=== PATIENT | female | born 1985 | race Asian ===

== ENCOUNTER 2018-09-28 04:40 | Inpatient (IN) | payer MEDICAID, OTHER, SELFPAY ==
[2018-09-28] MEDS ORDERED: Ondansetron PF 4 MG/2 ML Vial IVP PRN ×3 (05:19→10:31)
[2018-09-28] MEDS ORDERED: Promethazine HCl 25 MG/ML VIAL IM PRN ×2 (05:19→07:36)
[2018-09-28] MEDS ORDERED: Bicitra 30 ML UDCUP PO SCH (05:19)
[2018-09-28] MEDS ORDERED: CEFAZOLIN/Water 2 GM/20 ML SYRINGE SLOW IVP SCH (05:19)
[2018-09-28] MEDS ORDERED: Lactated Ringer's 1,000 ML IV SCH (05:19)
[2018-09-28 05:30] VITALS: BMI 31.6
[2018-09-28 06:01] LABS: Hemoglobin 11.9 g/dL (12.0-16.0); Mean Corpuscular HGB CONC 32.8 g/dL (32.0-36.0); Mean Corpuscular Volume 79.2 fL (78.0-98.0); Mean Platelet Volume 8.8 fL (7.4-10.4); Platelet Count 203 thou/uL (130-400); Red Blood Cell (RBC) Count 4.58 mill/uL (4.20-5.40); White Blood Cell (WBC) Count 11.7 thou/uL (4.8-10.8)
[2018-09-28 06:35] LABS: HBSAg Index 0.31 S/CO (0-0.99); Hep B Surf Ag Non-Reactive S/CO (NonReactive); Syphilis Antibody Nonreactive (Nonreactive); Syphilis Antibody Index 0.05 S/CO (<1.00 Non-Reactive)
[2018-09-28] MEDS ORDERED: Lidocaine 2% PF Inj 2 ML VIAL ONE (06:58)
[2018-09-28] MEDS ORDERED: Morphine PF 1 MG/ML SYR ONE (06:58)
[2018-09-28] MEDS ORDERED: Bupivacaine 0.75% W/DEXTROSE 8.25% 2 ML AMP ONE (06:59)
[2018-09-28] MEDS ORDERED: Oxytocin 10 UNITS/ML VIAL ONE (07:07)
[2018-09-28] MEDS ORDERED: Ondansetron HCl/PF 4 MG/2 ML Vial IVP PRN (07:35)
[2018-09-28] MEDS ORDERED: L&D-Morphine 4 MG/ML VIAL SLOW IVP PRN (07:35)
[2018-09-28] MEDS ORDERED: Meperidine HCl/PF 25 MG/ML VIAL SLOW IVP PRN (07:35)
[2018-09-28] MEDS ORDERED: HYDROmorphone 2 MG/ML VIAL SLOW IVP PRN (07:35)
[2018-09-28] MEDS ORDERED: Promethazine HCl 25 MG SUPP PR PRN (07:36)
[2018-09-28] MEDS ORDERED: Naloxone HCl 0.4 mg/ml Vial IV PRN (07:36)
[2018-09-28] MEDS ORDERED: Ketorolac Tromethamine 30 MG/ML VIAL IVP PRN (07:36)
[2018-09-28] MEDS ORDERED: Naloxone HCl 0.4 mg/ml Vial IVP PRN ×2 (07:36)
[2018-09-28] MEDS ORDERED: diphenhydrAMINE 50 MG/ML VIAL IVP PRN (07:36)
[2018-09-28] MEDS ORDERED: Eucerin (Mineral Oil/Petrolatum,White) 30 gm Jar TOP PRN (07:36)
[2018-09-28] MEDS ORDERED: Ketorolac Tromethamine 30 MG/ML VIAL IVP SCH (07:45)
[2018-09-28] MEDS ORDERED: Communication Order-Pharmacy FS SCH (07:45)
[2018-09-28] MEDS ORDERED: PHENYLEPHRINE-NS 100 MCG/ML 10 ML SYRINGE ONE ×2 (08:07→14:46)
--- NOTE | 2018-09-28 08:27 | OP ---
DATE OF PROCEDURE: 09/28/2018 PREOPERATIVE DIAGNOSIS: Term intrauterine with previous section. POSTOPERATIVE DIAGNOSES: Term intrauterine with previous section, status post del steph. PROCEDURE: Repeat low transverse section. SURGEON: Verenice Corea M.D. LAY OUT AND DETAIL DRAFTER: Pacnhito Corea M.D. ANESTHESIA: Spinal anesthetic. COMPLICATIONS: None. PROCEDURE IN DETAIL: After adequate spinal anesthetic, the patient was placed in supine position. A wedge was placed under her right flank. A Cade catheter was placed and the abdomen was prepped and draped in the usual sterile technique. A Pfannenstiel incision was made through the old scar and th e old scar was removed. The subcu tissue was opened with sharp dissection. Fascia opened with sharp dissection. Peritoneum opened with sharp and blunt dissection. It was noted that the abdomen was f illed with a gravid uterus. A large Allan O retractor was placed and a bladder flap was incised inf eriorly. A low transverse incision was made on the uterus. Membranes were ruptured. Clear fluid wa s encountered. A viable female infant was delivered from vertex presentation without difficulty. In jason breathed and cried spontaneously. Cord was clamped and cut after approximately 30 seconds. An additional cord blood allowed to the baby. The infant was handed to care of the neonatology team. C ord blood was then obtained and the placenta was delivered manually and appeared intact. The uterus was wiped clean with a second wet lap, and the hysterotomy edges were grasped with ring forceps. An additional ring forceps was used to dilate the cervix and this ring forcep was taken external to the sterile field. The uterus was then closed in continuous fashion using #1 Monocryl. Hemostasis was a dequate. The Allan O retractor was then removed. There were no bleeders. Two small clots were rem evan, and the peritoneum was then closed in continuous fashion using a 3-0 chromic. The fascia was t hen closed in continuous fashion using 0 Vicryl. Subcutaneous tissue was reapproximated with 2-0 wilber in and the sutures were placed in the skin. The patient tolerated the procedure well. Sponge and in strument counts were correct. The patient to recovery room in good condition. Quantitative blood loss 365 mL. Noted the baby is a viable female infant, weight 7 pounds 7 ounces, Apgars 9 at 1 minute, 9 at 5 minutes, to go to the recovery room in good condition. Noted uterus, o varies, and tubes all appear within normal limits.
[2018-09-28] MEDS ORDERED: NS / Oxytocin 40 units/1000ml 1,000 ML ONE (08:41)
[2018-09-28] MEDS ORDERED: diphenhydrAMINE 50 MG/ML VIAL ONE (09:15)
[2018-09-28] MEDS ORDERED: CEFAZOLIN 2 GM/50 ML-DEXTROSE 2 GM in Premix Bag 1 BAG IVPB SCH (09:45)
[2018-09-28] MEDS ORDERED: NS / Oxytocin 40 units/1000ml 1,000 ML IV SCH (10:31)
[2018-09-28] MEDS ORDERED: Bisacodyl 10 MG SUPP PR PRN (10:31)
[2018-09-28] MEDS ORDERED: Simethicone Chewable 80 MG TAB PO PRN (10:31)
[2018-09-28] MEDS ORDERED: Acetaminophen/Codeine 30-300mg Tablet PO PRN (10:31)
[2018-09-28] MEDS ORDERED: diphenhydrAMINE 25 MG CAP PO PRN (10:31)
[2018-09-28] MEDS ORDERED: Acetaminophen 325 MG TAB PO PRN (10:31)
[2018-09-28] MEDS ORDERED: Lanolin Ointment 7 GM TUBE TOP PRN (10:31)
[2018-09-28] MEDS ORDERED: Ferrous Sulfate 325 MG TAB PO SCH (11:45)
[2018-09-28] MEDS ORDERED: Prenatal Vitamin 1 TAB PO SCH (12:00)
[2018-09-28] MEDS: Docusate Calcium (SURFAK) 240 MG CAP PO SCH ×2 (12:50→21:00)
[2018-09-28 14:13] LABS: HBSAg Index 0.21 S/CO (0-0.99); HIV (1/2) Antibody/Antigen Non-Reactive (NonReactive); Hep B Surf Ag Non-Reactive S/CO (NonReactive); Hep C IgG Ab Non-Reactive (NonReactive); Hep C Index 0.11 S/CO (0-0.79)
[2018-09-28] MEDS: Ibuprofen 800 MG TAB PO SCH ×2 (14:59→22:00)
[2018-09-28] MEDS: Ferrous Sulfate 325 MG TAB PO SCH (21:00)
[2018-09-29] MEDS: Ibuprofen 800 MG TAB PO SCH ×4 (04:03→21:34)
[2018-09-29 06:15] LABS: Hemoglobin 10.1 g/dL (12.0-16.0); Mean Corpuscular Hemoglobin 25.9 pg (27.0-31.0); Mean Corpuscular Volume 81.2 fL (78.0-98.0); Mean Platelet Volume 8.5 fL (7.4-10.4); Platelet Count 173 thou/uL (130-400); RBC Distribution Width 14.3 % (11.5-14.5); White Blood Cell (WBC) Count 12.6 thou/uL (4.8-10.8)
[2018-09-29 06:35] LABS: Hep C IgG Ab Non-Reactive (NonReactive); Hep C Index 0.12 S/CO (0-0.79)
[2018-09-29] MEDS ORDERED: Prenatal Vitamin 1 TAB PO SCH (09:00)
[2018-09-29] MEDS: Ferrous Sulfate 325 MG TAB PO SCH ×2 (09:54→21:01)
[2018-09-29] MEDS: Docusate Calcium (SURFAK) 240 MG CAP PO SCH ×3 (09:54→21:02)
[2018-09-29] MEDS: Prenatal Vitamin 1 TAB PO SCH (09:56)
[2018-09-29] MEDS: HYDROcodone/Acetaminophen 5/325 mg Tablet PO PRN ×2 (12:31→16:44)
[2018-09-29] MEDS ORDERED: Artificial Tear Sol 15 ML BOT EA EYE PRN (13:48)
[2018-09-30] MEDS: HYDROcodone/Acetaminophen 5/325 mg Tablet PO PRN (03:40)
[2018-09-30] MEDS: Ibuprofen 800 MG TAB PO SCH ×3 (05:32→21:02)
[2018-09-30] MEDS: Ferrous Sulfate 325 MG TAB PO SCH (09:34)
[2018-09-30] MEDS: Docusate Calcium (SURFAK) 240 MG CAP PO SCH (09:34)
[2018-09-30] MEDS: Prenatal Vitamin 1 TAB PO SCH (09:39)
[2018-09-30 20:19] VITALS: BP 118/66; TEMP 97.9
[2018-10-01] MEDS: HYDROcodone/Acetaminophen 5/325 mg Tablet PO PRN ×2 (00:29→10:51)
[2018-10-01] MEDS: Ibuprofen 800 MG TAB PO SCH (05:50)
[2018-10-01] MEDS: Docusate Calcium (SURFAK) 240 MG CAP PO SCH ×2 (07:02→07:03)
[2018-10-01] MEDS: Ferrous Sulfate 325 MG TAB PO SCH (07:03)
[2018-10-01] MEDS: Prenatal Vitamin 1 TAB PO SCH (10:45)
== END 2018-10-01 13:18 | disposition home or self-care (01) | DRG 788 ==
LOC: L&D 04:40 → 3SE 10:33 → EDSTATUS 10-05 12:15
PROVIDERS: ADMIT Family Medicine; ATTEND Family Medicine
PROC: 10D00Z1 Extraction of Products of Conception, Low, Open Approach (ICD-10-PCS; principal; 2018-09-28)
DX: O34.211 Maternal care for low transverse scar from previous cesarean delivery (principal); Z3A.39 39 weeks gestation of pregnancy; Z37.0 Single live birth
CPT/HCPCS: 36415; 51702; 85027; 86780; 86803; 86850; 86900; 86901; 87340; 87389; J1200; J2274; J2590; J3490

== ENCOUNTER 2019-10-09 14:32 | Outpatient (CLI) | payer OTHER ==
--- NOTE | 2019-10-09 15:21 | ULT ---
EXAM: OB ultrasound COMPARISON: None HISTORY: female. Evaluate size, dates, and anatomy. TECHNIQUE: Multiplanar grayscale and color Doppler transabdominal sonographic images are obtained. FINDINGS: There is a single intrauterine gestation in cephalic presentation. Cardiac Doppler demonstr ates heart tones with a heart rate of 147 beats per minute. The placenta is located posteriorly and is low lying. There is a normal amount of amniotic fluid with an amniotic fluid index of 16.48 centimeters. The cervical length based on transabdominal imaging measures 5.3 centimeters. biometry measurements: BPD 4.57 cm -- 19 weeks 6 days HC 17.32 cm -- 20 weeks AC 15.62 cm -- 20 weeks 6 days FL 3.25 cm -- 20 weeks 1 day The estimated gestational age by ultrasound is 20 weeks 2 days with an RACH on02/24/2020. Gestational a ge by the last menstrual period is also 20 weeks 2 days. The estimated weight by ultrasound is 351g (12 ounces). This represents 52 percentile for weight. A 4 chambered heart is visualized. The cerebellum, visualized portions of the spine, kidneys, u rinary bladder, and cord insertion demonstrate a normal sonographic appearance. A three-vessel cord is not visualized, but there is flow on either side of the urinary bladder sugges ting a three-vessel cord.. No anomalies are seen. IMPRESSION: 1. Low-lying placenta. Follow-up evaluation in 4-6 weeks is recommended. 2. Single intrauterine gestation in cephalic presentation with heart tones documented. Estimat ed gestational age by ultrasound is 20 weeks 2 days. 3. Estimated weight is 351 g (12 ounces). 4. Amniotic fluid index is 16.5 centimeters.
== END 2019-10-09 14:33 | disposition home or self-care (01) ==
LOC: BICULT 14:32
PROVIDERS: ATTEND Family Medicine
DX: Z34.82 Encounter for supervision of other normal pregnancy, second trimester (principal); Z3A.20 20 weeks gestation of pregnancy
CPT/HCPCS: 76805

== ENCOUNTER 2019-11-23 08:39 | Outpatient (CLI) | payer OTHER ==
--- NOTE | 2019-11-23 09:48 | ULT ---
Limited OB ultrasound HISTORY: Low-lying placenta. COMPARISON: 10/09/2019 FINDINGS: Again noted is a single intrauterine gestation in cephalic presentation. Cardiac Doppler demonstrates heart tones with a heart rate of 144 bpm. The placenta is located posteriorly without evidence of placenta previa. The leading edge of the placenta was noted to be low lying on the prior exam, and the distance of the leading edge of placenta to the cervical os on the current exam is 3.8 cm. The amniotic fluid volume is increased with elevated amniotic fluid index of 23.66 cm. The cervix is mostly obscured due to shadowing from head. measurements: Biparietal diameter6.51 cm, 26 weeks 3 days Head circumference 23.95 cm, 26 weeks 1 day Abdominal circumference 21.39 cm, 26 weeks Femur length 4.94 cm, 26 weeks 5 days The estimated gestational age by ultrasound is 26 weeks and 3 days with an RACH on 02/26/2020. Gestatio nal age by the last menstrual period is 26 weeks and 5 days. Estimated weight by ultrasound is 905 g (2 pounds). This represents 20th percentile for w eight. This examination was not performed for evaluation of the anatomical structures. IMPRESSION: 1. Polyhydramnios with amniotic fluid index measuring 23.66 cm. 2. Single intrauterine gestation in cephalic presentation with heart tones documented. 3. Estimated gestational age by ultrasound is 26 weeks and 3 days with RACH on 02/26/2020. 4. The leading edge of the placenta is not low-lying on today's examination with a distance of 3.8 cm between the leading edge of the placenta and the cervical os. 5. Above findings discussed with Dr. Verenice Corea on 11/23/2019 at 1009 hours.
== END 2019-11-23 08:40 | disposition home or self-care (01) ==
LOC: BICULT 08:39
PROVIDERS: ATTEND Family Medicine
DX: O44.42 Low lying placenta NOS or without hemorrhage, second trimester (principal); O40.2XX0 Polyhydramnios, second trimester, not applicable or unspecified; Z3A.26 26 weeks gestation of pregnancy
CPT/HCPCS: 76815

== ENCOUNTER 2019-12-12 08:25 | Outpatient (CLI) | payer OTHER ==
--- NOTE | 2019-12-12 09:24 | ULT ---
Complete obstetrical ultrasound INDICATION: Polyhydramnios TECHNIQUE: Grayscale, M-mode Doppler and Doppler images were obtained of the abdomen and pelvis to ev aluate the patient's known . COMPARISON: November 23, 2019 OB ultrasound FINDINGS: Number of gestations: Single. Presentation: Cephalic. Placental location: Posterior Previa: No evidence for previa. Cervical length: Not visualized THANH: 21.1 cm. (Just below 95th percentile for gestational age) heart rate: 130 bpm. Biparietal diameter: 7.64cm, 30 weeks 5 days, Not calculated.. Head circumference: 27.91 cm, 30 weeks 4 days, Not calculated. Abdominal circumference: 26.08 cm, 30 weeks 2 days, Not calculated. Femoral length: 5.75cm, 30 weeks 1 day, Not calculated. Estimated weight: 1539 g +/- 225g 3 lbs. 6 oz. +/- 8 ounces, 86th percentile SURVEY: head: Normal appearing. Cerebellum: Not evaluated. Cisterna magna: Not evaluated Lateral ventricles: Not evaluated 4 chamber heart: Normal appearing.. Stomach: Normal appearing. Kidneys: Normal appearing. Cord insertion: Normal appearing. Bladder: Normal appearing. Spine: Normal appearing. Lips and nose: Normal appearing. Extremities: Normal appearing. Three-vessel CORD: Normal appearing. The average gestational age by ultrasound is 30 weeks and 3 dayswith estimated due date of February 16. The estimated dates by clinical data is 20 weeks and 6 dayswith estimated due date of February 28, 2020. IMPRESSION: 1. Single live intrauterine gestation with size and dates as above. 2. The THANH is slightly less less than 95th percentile for gestational age. 3. Visualized aspects of the survey appeared within normal limits. The cerebellum, cisterna mag na and the lateral ventricles were not evaluated.
== END 2019-12-12 08:26 | disposition home or self-care (01) ==
LOC: BICULT 08:25
PROVIDERS: ATTEND Family Medicine
DX: O40.3XX0 Polyhydramnios, third trimester, not applicable or unspecified (principal); O44.43 Low lying placenta NOS or without hemorrhage, third trimester; Z3A.30 30 weeks gestation of pregnancy
CPT/HCPCS: 76805

== ENCOUNTER 2020-02-19 09:25 | Inpatient (IN) | payer MEDICAID, OTHER, SELFPAY ==
[2020-02-19] MEDS: Lactated Ringer's 1,000 ML IV SCH ×3 (09:40→23:43)
[2020-02-19] MEDS ORDERED: Bicitra 30 ML UDCUP PO SCH (10:03)
[2020-02-19] MEDS ORDERED: CEFAZOLIN 2 GM in Premix Bag 1 BAG IVPB SCH (10:03)
[2020-02-19] MEDS ORDERED: hydrALAZINE 20 MG/ML VIAL SLOW IVP PRN ×2 (10:03→15:16)
[2020-02-19] MEDS ORDERED: Promethazine HCl 25 MG/ML VIAL IM PRN ×2 (10:03→12:04)
[2020-02-19] MEDS ORDERED: Ondansetron PF 4 MG/2 ML Vial IVP PRN ×3 (10:03→15:16)
[2020-02-19 10:14] VITALS: BMI 31.8
[2020-02-19 10:29] LABS: Mean Corpuscular HGB CONC 34.2 g/dL (32.0-36.0); Mean Corpuscular Hemoglobin 27.5 pg (27.0-31.0); Mean Corpuscular Volume 80.5 fL (78.0-98.0); Mean Platelet Volume 9.1 fL (7.4-10.4); Platelet Count 159 thou/uL (130-400); RBC Distribution Width 13.2 % (11.5-14.5); Red Blood Cell (RBC) Count 4.35 mill/uL (4.20-5.40); White Blood Cell (WBC) Count 10.6 thou/uL (4.8-10.8)
[2020-02-19 11:06] LABS: HBSAg Index 0.18 S/CO (0-0.99); Hep B Surf Ag Non-Reactive S/CO (NonReactive)
[2020-02-19 11:07] LABS: Syphilis Antibody Nonreactive (Nonreactive); Syphilis Antibody Index 0.05 S/CO (<1.00 Non-Reactive)
[2020-02-19] MEDS ORDERED: MORPHINE 5 MG/10 ML PF VIAL ONE (11:54)
[2020-02-19] MEDS ORDERED: Fentanyl 100 MCG/2 ML VIAL ONE (11:54)
[2020-02-19] MEDS ORDERED: PHENYLEPHRINE-NS 100 MCG/ML 10 ML SYRINGE ONE (11:55)
[2020-02-19] MEDS ORDERED: Glycopyrrolate 0.2 MG/ML 5 ML SYRINGE ONE (11:55)
[2020-02-19] MEDS ORDERED: Oxytocin 10 UNITS/ML VIAL ONE (11:55)
[2020-02-19] MEDS ORDERED: Ondansetron PF 4 MG/2 ML Vial ONE (11:55)
[2020-02-19] MEDS ORDERED: Ondansetron HCl/PF 4 MG/2 ML Vial IVP PRN (12:04)
[2020-02-19] MEDS ORDERED: diphenhydrAMINE 50 MG/ML VIAL IVP PRN (12:04)
[2020-02-19] MEDS ORDERED: Naloxone HCl 0.4 mg/ml Vial IV PRN (12:04)
[2020-02-19] MEDS ORDERED: Promethazine HCl 25 MG SUPP PR PRN (12:04)
[2020-02-19] MEDS ORDERED: Ketorolac Tromethamine 30 MG/ML VIAL IVP PRN (12:04)
[2020-02-19] MEDS ORDERED: Naloxone HCl 0.4 mg/ml Vial IVP PRN ×2 (12:04)
[2020-02-19] MEDS ORDERED: Communication Order-Pharmacy FS SCH (12:15)
--- NOTE | 2020-02-19 13:42 | OP ---
DATE OF PROCEDURE: 02/19/2020 PREOPERATIVE DIAGNOSIS: Term intrauterine with previous section x2. POSTOPERATIVE DIAGNOSIS: Term intrauterine with previous section x2, status post delivery. PROCEDURE PERFORMED: Repeat low-transverse section. FOR[employer] PRODU[employer] GATHERER: Kaleb Rae MD ANESTHESIA: Spinal anesthetic. COMPLICATIONS: No complications. DESCRIPTION OF PROCEDURE: After adequate spinal anesthetic, the patient was placed in the supine position. A Cade catheter was placed in the bladder and the abdomen was prepped and draped in the usual sterile technique. A wedge had been placed under her right flank. A Pfannenstiel incision was made through the old scar. Subcutaneous tissue opened with sharp dissection. Fascia opened with sharp dissection. Peritoneum opened with sharp and blunt dissection. Noted that, the abdomen was still with a gravid uterus. There were no adhesions. An Allan O retractor was placed without difficulty and a low-transverse incision was made on the uterus. Membranes were ruptured. Clear fluid was encountered. A viable male was delivered from vertex presentation without difficulty. Cord around neck x1, which was reduced easily. breathed and cried spontaneously. After approximately 30 seconds, the cord was clamped and cut and the infant was handed to the care of the Neonatology Team. Cord blood was obtained and placenta was delivered manually without difficulty, appeared intact. A wet lap was used to wipe clean the uterus and ring forceps were placed over the edge of the hysterotomy, which was then closed in continuous fashion using 0 Monocryl sutures and noted that the hemostasis was adequate. Gutters were checked. There was no further bleeding. The peritoneum was then closed in continuous fashion using 2-0 chromic and the fascia was then closed in continuous fashion using 0 Vicryl. The wound was irrigated. Few bleeders were cauterized in the subcutaneous tissue and the subcutaneous tissue was then closed in continuous fashion using 0 plain. The skin was then closed in a subcuticular fashion using 4-0 Vicryl. Sponge and instrument counts were correct x2. The patient tolerated the procedure well. Baby is a viable male infant, weight 7 pounds 15 ounces, Apgars 8 at one minute, 9 at five minute, taken to level I nursery. The patient was taken to the recovery room in good condition. Quantitative blood loss is pending at this time. Estimated blood loss approximately 500 mL. Job ID: [id number]
[2020-02-19] MEDS ORDERED: Bisacodyl 10 MG SUPP PR PRN (15:16)
[2020-02-19] MEDS ORDERED: Acetaminophen 325 MG TAB PO PRN (15:16)
[2020-02-19] MEDS ORDERED: diphenhydrAMINE 25 MG CAP PO PRN (15:16)
[2020-02-19] MEDS ORDERED: Simethicone Chewable 80 MG TAB PO PRN (15:16)
[2020-02-19] MEDS ORDERED: Lanolin Ointment 7 GM TUBE TOP PRN (15:16)
[2020-02-20] MEDS ORDERED: Acetaminophen/Codeine 30-300mg Tablet PO PRN (00:01)
[2020-02-20] MEDS ORDERED: HYDROcodone/Acetaminophen 5/325 mg Tablet PO PRN (00:01)
[2020-02-20] MEDS: Acetaminophen 650 MG Suppository PR SCH ×2 (03:52→07:36)
[2020-02-20] MEDS: Docusate Calcium (SURFAK) 240 MG CAP PO SCH ×3 (03:55→22:56)
[2020-02-20] MEDS: Ferrous Sulfate 325 MG TAB PO SCH ×3 (03:55→22:58)
[2020-02-20] MEDS: Ibuprofen 800 MG TAB PO SCH ×4 (03:56→22:56)
[2020-02-20 05:45] LABS: Hemoglobin 10.6 g/dL (12.0-16.0); Mean Corpuscular HGB CONC 32.7 g/dL (32.0-36.0); Mean Corpuscular Hemoglobin 26.7 pg (27.0-31.0); Mean Corpuscular Volume 81.6 fL (78.0-98.0); Mean Platelet Volume 8.9 fL (7.4-10.4); Platelet Count 134 thou/uL (130-400); RBC Distribution Width 13.3 % (11.5-14.5); Red Blood Cell (RBC) Count 3.97 mill/uL (4.20-5.40); White Blood Cell (WBC) Count 11.2 thou/uL (4.8-10.8)
[2020-02-20] MEDS: Prenatal Vitamin 1 TAB PO SCH (08:52)
[2020-02-21] MEDS: Ibuprofen 800 MG TAB PO SCH (05:29)
[2020-02-21 08:26] VITALS: BP 115/62; TEMP 98.4
[2020-02-21] MEDS: Prenatal Vitamin 1 TAB PO SCH (10:32)
[2020-02-21] MEDS: Docusate Calcium (SURFAK) 240 MG CAP PO SCH (10:32)
[2020-02-21] MEDS: Ferrous Sulfate 325 MG TAB PO SCH (10:32)
== END 2020-02-21 11:10 | disposition home or self-care (01) | DRG 788 ==
LOC: L&D 09:25 → 3SW 15:32
PROVIDERS: ADMIT Family Medicine; ATTEND Family Medicine
PROC: 10D00Z1 Extraction of Products of Conception, Low, Open Approach (ICD-10-PCS; principal; 2020-02-19)
DX: O34.211 Maternal care for low transverse scar from previous cesarean delivery (principal); Z3A.39 39 weeks gestation of pregnancy; Z37.0 Single live birth
CPT/HCPCS: 36415; 51702; 85027; 86780; 86850; 86900; 86901; 87340; J0690; J1885; J2274; J2405; J2590; J3010